=== PATIENT | female | born 1995 | race Caucasian/White ===

== ENCOUNTER → 2019-12-15 10:26 | Outpatient (BNVA) | payer OTHER, SELFPAY | PROVIDERS: Family Provider Nurse Practitioner Family; Visit Provider Nurse Practitioner Family | DX: D50.9 Iron deficiency anemia, unspecified (principal); R53.83 Other fatigue; B35.9 Dermatophytosis, unspecified | CPT/HCPCS: 80053; 81003; 81025; 83550; 84443; 84702 ==

== ENCOUNTER → 2020-01-05 15:14 | Outpatient (BNVA) | payer OTHER, SELFPAY | PROVIDERS: Family Provider Nurse Practitioner Family; Visit Provider Nurse Practitioner Family | DX: J02.9 Acute pharyngitis, unspecified (principal) | CPT/HCPCS: 87880 ==

== ENCOUNTER → 2020-04-19 14:08 | Outpatient (BNVA) | payer OTHER, SELFPAY | PROVIDERS: Family Provider Nurse Practitioner Family; Visit Provider Nurse Practitioner Family | DX: R06.02 Shortness of breath (principal) | CPT/HCPCS: 71046 ==

== ENCOUNTER → 2022-05-06 10:07 | Outpatient (BNVA) | payer OTHER, SELFPAY | PROVIDERS: Family Provider Nurse Practitioner Family; PCP Nurse Practitioner; Visit Provider Nurse Practitioner | DX: R53.83 Other fatigue (principal); N61.0 Mastitis without abscess; D50.9 Iron deficiency anemia, unspecified; N64.59 Other signs and symptoms in breast | CPT/HCPCS: 80053; 80074; 83540; 84443; 85025; 86592 ==